=== PATIENT | female | born 1995 | race Caucasian/White ===

== ENCOUNTER 2016-08-10 17:10 | Outpatient (CLI) | payer OTHER ==
[2016-08-10 18:16] VITALS: BP 127/90
== END 2016-08-10 18:34 | disposition home or self-care (01) ==
LOC: TRG 17:10
PROVIDERS: ATTEND Obstetrics & Gynecology
DX: Z34.90 Encounter for supervision of normal pregnancy, unspecified, unspecified trimester (principal); Z3A.00 Weeks of gestation of pregnancy not specified
CPT/HCPCS: 59025

== ENCOUNTER 2016-08-19 15:37 | Outpatient (CLI) | payer OTHER ==
[2016-08-19 16:25] VITALS: BP 132/82
== END 2016-08-19 16:56 | disposition home or self-care (01) ==
LOC: TRG 15:37
PROVIDERS: ATTEND Obstetrics & Gynecology
DX: Z34.90 Encounter for supervision of normal pregnancy, unspecified, unspecified trimester (principal); Z3A.00 Weeks of gestation of pregnancy not specified
CPT/HCPCS: 59025

== ENCOUNTER 2016-08-27 09:06 | Inpatient (IN) | payer OTHER ==
--- NOTE | 2016-08-27 02:37 | History and Physical Report ---
History of Present Illness Date of examination: 08/27/16 Chief complaint: breech presentation History of present illness: Pt is a 21 year old female primigravida 09/03/16 at 39w0d who presents for scheduled section secondary to malpresentation. She denies vaginal bleeding or leakage of fluid and reports good movement. She has had care at [facility] since 14 wks that has been uncomplicated. She is GBS negative. Past History Past Medical History: no pertinent history Past Surgical History: no surgical history Family/Genetic History: none Social history: no significant social history - Obstetrical History Expected Date of Delivery: 09/03/16 Actual Gestation: 39 Week(s) 0 Day(s) : 1 Medications and Allergies Allergies Allergy/AdvReac Type Severity Reaction Status Date / Time No Known Allergies Allergy Unverified 08/10/16 17:10 Review of Systems All systems: negative - Physical Exam Breasts: Positive: deferred Cardiovascular: Regular rate Lungs: Positive: Clear to auscultation Abdomen: Positive: soft (gravid ) Uterus: Positive: enlarged (gravid ) Extremities: Positive: normal - Obstetrical FHR: auscultation normal Uterine Contraction Monitor Mode: External Uterine Contraction Pattern: Absent Uterine Tone Measurement Phase: Resting Results All other labs normal. Assessment and Plan A: IUP at 39w0d Malpresentation P: Confirm breech presentation. Proceed with primary section and other indicated procedures.
--- NOTE | 2016-08-27 11:38 | Ultrasound Report ---
OB LIMITED INDICATION: Presentation. COMPARISON: None similar at this institution. TECHNIQUE: Transabdominal grayscale ultrasound with Doppler interrogation. Gestation: Lindsay Position: Breech Heart Rate: 137 BPM
[2016-08-27] MEDS ORDERED: LACTATED RINGERS 2,000 ML ONE (11:44)
[2016-08-27] MEDS ORDERED: PITOCin/NS 20 UNIT/1000ML DRIP 20 UNIT/1,000 ML BAG IV NR (12:00)
[2016-08-27] MEDS ORDERED: ANCEF/STERILE WATER 2 GM/20 ML 2 GM/20 ML SYRINGE IV NR (12:00)
[2016-08-27] MEDS ORDERED: PEPCID IV NR (12:00)
[2016-08-27] MEDS ORDERED: REGLAN IV NR (12:00)
[2016-08-27] MEDS ORDERED: LACTATED RINGERS 1,000 ML IV NR (12:00)
[2016-08-27] MEDS ORDERED: BICITRA PO NR (12:00)
[2016-08-27 12:26] LABS: Basophils % (Auto) 0.7 % (0.0-1.8); Eosinophils % (Auto) 0.2 % (0.0-4.3); Hematocrit 37.4 % (30.3-42.9); Hemoglobin 12.4 gm/dl (10.1-14.3); Mean Corpuscular HGB Conc 33 % (30-34); Mean Corpuscular Hemoglobin 26 pg (28-32); Mean Corpuscular Volume 79 fl (79-97); Red Blood Count 4.72 M/mm3 (3.65-5.03); Red Cell Distribution Width 16.8 % (13.2-15.2); White Blood Count 10.4 K/mm3 (4.5-11.0)
--- NOTE | 2016-08-27 12:32 | Anesthesia Consultation ---
Anesthesia Consult and Med Hx Date of service: 08/27/16 - Airway Anesthetic Teeth Evaluation: Good ROM Head & Neck: Adequate Mental/Hyoid Distance: Adequate Mallampati Class: Class II Intubation Access Assessment: Probably Good - Pre-Operative Health Status ASA Pre-Surgery Classification: ASA2 Proposed Anesthetic Plan: Epidural, Spinal - Pulmonary Hx Asthma: No - Cardiovascular System Hx Hypertension: No - Central Nervous System Hx Seizures: No Hx Psychiatric Problems: No - Endocrine Hx Renal Disease: No Hx Hypothyroidism: No Hx Hyperthyroidism: No - Hematic Hx Anemia: No Hx Sickle Cell Disease: No - Other Systems Hx Alcohol Use: No Hx Obesity: Yes (BMI 40.9) - Additional Comments Anesthesia Medical History Comments: breech presentation
--- NOTE | 2016-08-27 12:32 | Anesthesia Day of Surgery ---
Anesthesia Day of Surgery - Day of Surgery Patient Examined: Yes Patient H&P Reviewed: Yes Patient is NPO: Yes
[2016-08-27] MEDS ORDERED: SODIUM CHLORIDE FLUSH SYRINGE 10 ML IV PRN (13:00)
[2016-08-27] MEDS ORDERED: fentaNYL-BUPIV 2 MCG/ML-0.125% 200 MCG/100 ML BAG EPIDURAL SCH (13:00)
[2016-08-27] MEDS ORDERED: ZOFRAN IV PRN ×2 (13:00→17:21)
[2016-08-27 13:04] LABS: Platelet Count 200 K/mm3 (140-440)
[2016-08-27] MEDS ORDERED: MORPHINE ONE (13:14)
[2016-08-27] MEDS ORDERED: WATER FOR IRRIG STERILE IR ONE (13:20)
[2016-08-27] MEDS ORDERED: NACL 0.9% IR ONE (13:20)
[2016-08-27] MEDS ORDERED: ANCEF/STERILE WATER 2 GM/20 ML IV ONE (13:25)
[2016-08-27] MEDS ORDERED: NACL 0.9% 1000 ML 1,000 ML ONE (13:27)
[2016-08-27] MEDS ORDERED: NARCAN 0.4 MG/1 ML IV PRN ×2 (13:30→17:21)
[2016-08-27] MEDS ORDERED: ZOFRAN ONE (14:07)
--- NOTE | 2016-08-27 15:01 | Procedure Note ---
OB Delivery Note - Delivery Date of Delivery: 08/27/16 Surgeon: LIT CHAVES Estimated blood loss: other (800 mL) - Section Preop diagnosis: breech, other (spontaneous rupture of membranes) Postop diagnosis: same section procedure: section, primary low transverse Disposition: PACU Complications: none Narrative: Please see operative note. - Infant A at 1 minute: 9 at 5 minutes: 9 Infant Gender: Female (3158g (6lb 15 oz))
--- NOTE | 2016-08-27 15:08 | Operative Report ---
Operative Report Operative Report: Date of procedure: 08/27/2016 Preoperative diagnosis: #1 Intrauterine at 39 weeks 0 days #2 Malpresentation #3 Spontaneous rupture of membranes #4 Obesity Postoperative diagnosis: Same Procedure: Primary low transverse section Surgeon: Callie Baptiste M.D. Anesthesia: Spinal Findings: 1) Viable female , Apgars 9 and 9, weight 3158 g, (6 lb 15 oz) in irene breech presentation 2) Normal-appearing uterus ovaries and tubes Estimated blood loss: 800 mL IV fluids: 1500 mL Urine output: 300 mL, clear at the end of the procedure Drains: Benavides to gravity Specimens: None. Complications: None. Counts correct 3 Disposition: Stable to PACU Indication for procedure: The patient is a 21-year-old female primigravida at 39 weeks 0 days who presents for scheduled section secondary to breech presentation. While on the operative table the patient experienced spontaneous rupture of membranes. The decision was made to proceed with primary section. Operation in detail: After the risks, benefits, alternatives and complications were explained to the patient she gave informed consent for the procedure. She was subsequently taken to the operating room where spinal anesthesia was noted to be adequate. She was subsequently placed in the dorsal supine position with leftward tilt and prepped and draped in a normal sterile fashion. heart tones were noted to be in the 140 s prior to incision. A timeout was performed. A Pfannenstiel skin incision was made with the knife and carried down to the layer of the fascia with the Bovie. The fascia was incised in the midline and the fascial incision was extended bilaterally with the Bovie. Attention was then turned to the superior aspect of the incision which was grasped with two Kochers, tented up, and dissected off the rectus muscles. Attention was then turned to the inferior aspect of the incision which was grasped with two Kochers , tented up and dissected off the rectus muscles. The rectus muscles were then in the midline. The peritoneum was then entered bluntly. The peritoneal incision was extended with good visualization of the bladder. The peritoneal incision was then stretched. An Stanton self-retaining retractor was placed for visualization. The bladder blade was placed. The vesicouterine peritoneum was grasped with smooth pickups and incised with Metzenbaum scissors. Metzenbaum scissors were used to extend the incision bilaterally. The bladder flap was then created digitally and the bladder blade was replaced. A transverse incision was made in the lower uterine segment with a knife and extended bilaterally with the bandage scissors. The buttocks was delivered without difficulty and covered with a blue towel. Subsequently the legs and arms were reduced medially and the head was delivered without difficulty. was bulb suctioned at delivery. The cord was clamped and cut and the was handed to NICU staff in attendance. The placenta was then delivered manually. The uterus was then cleared of all clots and debris. The hysterotomy was then reapproximated with 0 Vicryl in a running locked fashion. A second layer of the same suture was used in imbricating fashion. The hysterotomy was inspected and hemostasis was noted. The Stanton self-retaining retractor was removed. The gutters were irrigated and cleared of all clots and debris. The hysterotomy was again inspected and noted to be hemostatic. Surgicel was placed over the hysterotomy. The peritoneum was reapproximated with 2-0 Vicryl in running fashion. The rectus muscles were then reapproximated with 2-0 Vicryl in an interrupted fashion. The fascia was reapproximated with 0 Vicryl in a running fashion. The subcutaneous tissue was reapproximated with 3-0 Vicryl in a running fashion. The skin was reapproximated with 4-0 Vicryl in a subcuticular fashion. The incision was then covered with steri strips and a pressure dressing. The procedure was then ended. The patient tolerated the procedure well and was taken to the PACU in stable condition. All instrument, lap, and needle counts were correct 3.
--- NOTE | 2016-08-27 16:06 | Post Anesthesia Evaluation ---
- Post Anesthesia Evaluation Patient Participated: Yes Airway Patent: Yes Stable Respiratory Function: Yes Temp > 96.8F: Yes Pain Manageable: Yes Adequeate Hydration: Yes Anesthesia Complications: No Block Receding Appropriately: Yes
[2016-08-27] MEDS ORDERED: PERCOCET 5/325 PO PRN (17:21)
[2016-08-27] MEDS ORDERED: LANSINOH TP PRN (17:21)
[2016-08-27] MEDS ORDERED: PITOCin/NS 20 UNIT/1000ML DRIP 20 UNITS/1,000 ML BAG IV SCH (17:21)
[2016-08-27] MEDS ORDERED: MORPHINE IV PRN ×2 (17:21)
[2016-08-27] MEDS ORDERED: TORADOL IV PRN (17:21)
[2016-08-27] MEDS ORDERED: TUCKS PAD TP PRN (17:21)
[2016-08-27] MEDS ORDERED: SODIUM CHLORIDE FLUSH SYRINGE 10 ML IV NR (17:21)
[2016-08-27] MEDS ORDERED: MILK OF MAGNESIA PO PRN (17:21)
[2016-08-27] MEDS: D5LR 1,000 ML IV SCH (17:54)
[2016-08-27] MEDS: ANCEF/NS 1 GM/50 ML 1 GM/50 ML BAG IV SCH (21:23)
[2016-08-27] MEDS: FEOSOL PO SCH (22:11)
[2016-08-28] MEDS: D5LR 1,000 ML IV SCH (00:47)
[2016-08-28] MEDS: ANCEF/NS 1 GM/50 ML 1 GM/50 ML BAG IV SCH (04:31)
[2016-08-28 06:12] LABS: Hematocrit 27.7 % (30.3-42.9); Hemoglobin 9.2 gm/dl (10.1-14.3)
--- NOTE | 2016-08-28 08:35 | Progress Note ---
Assessment and Plan A; POD#1 s/p primary section secondary to breech presentation P: Routine postoperative care. Hold diet if nausea and vomiting continues.. Subjective - Subjective Date of service: 08/28/16 Principal diagnosis: s/p primary for breech Interval history: + Nausea overnight. Tolerating water right now without nausea. Patient reports: appetite normal, voiding normally, pain well controlled, ambulating normally, nauseated (initally ), no flatus, no bowel movement Marcellus: doing well Objective - Vital Signs Latest vital signs: Vital Signs Temp Pulse Pulse Resp BP BP Pulse Ox 08/28/16 06:30 98.4 F 108 H 20 128/73 08/28/16 01:32 98.2 F 106 H 20 118/76 08/27/16 20:55 98 F 100 H 20 133/80 08/27/16 16:05 97.8 F 100 H 20 113/87 100 08/27/16 15:50 95 H 14 128/80 100 08/27/16 15:35 98 H 18 121/81 100 08/27/16 15:20 90 28 H 119/73 08/27/16 15:15 92 H 14 119/76 100 08/27/16 15:10 97.5 F L 94 H 15 121/76 100 08/27/16 15:07 97.5 F L 96 H 15 119/68 100 08/27/16 13:03 103 H 100 08/27/16 12:58 104 H 98 08/27/16 12:57 101 H 154/96 08/27/16 12:55 98.6 F 108 H 20 154/96 100 Intake and Output 08/27/16 08/28/16 08/28/16 22:59 06:59 14:59 Intake Total 975 1355 Output Total 900 1000 Balance 75 355 Intake: IV 875 875 ANCEF/NS 1 GM/50 ML 1 gm 50 In 50 ml @ 0 mls/hr IV Q8H CASSIUS Rx#:[id number] D5lr 1,000 ml @ 125 mls/ 50 825 hr IV DIRECT CASSIUS Rx#: [id number] PITOCin/NS 20 UNIT/1000ML 125 DRIP 20 units In 1,000 ml @ 250 mls/hr IV TITR CASSIUS Rx#:[id number] Intake, Free Water 100 480 Output: Urine 900 1000 Indwelling Catheter 400 1000 Other: Total, Output Amount 400 1000 # Voids Void 1 - Exam Breasts: Present: deferred Cardiovascular: Present: Regular rate Lungs: Present: Clear to auscultation Abdomen: Present: soft (obese ) Uterus: Present: fundal height at umbilicus Extremities: Present: edema (+1 ) Incision: Present: dressed - Labs Labs: Abnormal lab results 08/27/16 08/28/16 Range/Units 12:00 06:01 Hgb 9.2 L D (10.1-14.3) gm/dl Hct 27.7 L D (30.3-42.9) % MCH 26 L (28-32) pg RDW 16.8 H (13.2-15.2) %
[2016-08-28] MEDS: FEOSOL PO SCH (12:45)
[2016-08-28] MEDS: MOTRIN PO PRN ×2 (12:45→23:47)
[2016-08-28] MEDS: PRENATAL VITAMIN PO SCH (12:45)
[2016-08-28] MEDS ORDERED: BOOSTRIX IM ONE (15:11)
[2016-08-28] MEDS ORDERED: M-M-R II VACCINE SUB-Q ONE (15:11)
--- NOTE | 2016-08-29 11:19 | Progress Note ---
Assessment and Plan pod 2 s/p primary c/s. doing well. Subjective - Subjective Date of service: 08/29/16 Principal diagnosis: s/p primary for breech Interval history: pod 2 s/p primary c/s Patient reports: appetite normal, voiding normally, pain well controlled : doing well Objective - Vital Signs Latest vital signs: Vital Signs Temp Pulse Resp BP 08/29/16 00:50 98.2 F 100 H 22 120/90 08/28/16 16:50 98.1 F 108 H 20 115/62 08/28/16 13:24 98.2 F 100 H 20 117/68 Intake and Output 08/28/16 08/29/16 08/29/16 22:59 06:59 14:59 Intake Total 360 Balance 360 Intake: Oral 360 Other: Total, Intake Amount 360 # Voids Void 1 - Exam Breasts: Present: deferred Cardiovascular: Present: Regular rate, Normal S1, Normal S2 Lungs: Present: Clear to auscultation Abdomen: Present: normal appearance, soft Vulva: both: normal Uterus: Present: normal, firm Extremities: Present: normal Deep Tendon Reflex Grade: Normal +2 Incision: Present: normal, dry, intact
[2016-08-29] MEDS: FEOSOL PO SCH ×2 (13:34→19:18)
[2016-08-29] MEDS: PRENATAL VITAMIN PO SCH (13:35)
[2016-08-29] MEDS: MOTRIN PO PRN (13:36)
--- NOTE | 2016-08-29 13:40 | Discharge Summary ---
Providers - Providers Date of Admission: 08/27/16 09:06 Date of discharge: 08/30/16 Attending physician: LIT CHAVES 08/27/16 17:21 Consult to [facility] [CONS] Routine Reason For Exam: Primary care physician: LIT CHAVES Hospitalization Reason for admission: active labor Delivery: Procedure: section, primary low transverse Procedure details: s/p primary c/s doing well. Episiotomy: none Incision: normal, intact Other procedures: none complications: none Discharge diagnosis: IUP at term delivered [place] baby: female Hospital course: patient doing well. will d/c home tomorrow am Condition at discharge: Good Disposition: DISCHARGED TO HOME OR SELFCARE - Discharge Diagnoses (1) S/P primary low transverse Status: Acute (2) Anemia Status: Acute Qualifiers: Anemia type: A Iron deficiency anemia type: I Vitamin B12 deficiency anemia type: V Folate deficiency anemia type: F Bone marrow failure anemia type: B Hemolytic anemia type: H Other causes of anemia: O Comment: secondary to blood loss at delivery Plan - Discharge Medications Prescriptions: Ferrous Sulfate [Feosol 325 MG tab] 325 mg PO BID #60 tablet Ibuprofen [Motrin 800 MG tab] 800 mg PO Q8HR PRN #30 tablet PRN Reason: Pain, Moderate (4-6) oxyCODONE /ACETAMINOPHEN [Percocet 5/325] 1 tab PO Q6HR PRN #30 tablet PRN Reason: Pain - Provider Discharge Summary Activity: routine, no sex for 6 weeks, no heavy lifting 4 weeks, no strenuous exercise Diet: routine Instructions: routine Additional instructions: [] Smoking cessation referral if applicable(refer to patient education folder for contact #) [] Refer to [facility] Booklet Call your doctor immediately for: * Fever > 100.5 * Heavy vaginal bleeding ( >1 pad per hour) * Severe persistent headache * Shortness of breath * Reddened, hot, painful area to leg or breast * Drainage or odor from incision. * Keep incision clean and dry at all times and follow doctor's instructions regarding bathing/showering - Follow up plan Follow up: LIT CHAVES MD [Primary Care Provider] - 14 Days
[2016-08-30] MEDS: MOTRIN PO PRN (09:49)
[2016-08-30 10:44] VITALS: BP 133/88
== END 2016-08-30 10:35 | disposition home or self-care (01) | DRG 765 ==
LOC: APU 09:06 → OB 17:01
PROVIDERS: ADMIT Obstetrics & Gynecology; ATTEND Obstetrics & Gynecology
PROC: 10D00Z1 Extraction of Products of Conception, Low, Open Approach (ICD-10-PCS; principal; 2016-08-27)
DX: O32.1XX0 Maternal care for breech presentation, not applicable or unspecified (principal); Z68.41 Body mass index [BMI] 40.0-44.9, adult; D62 Acute posthemorrhagic anemia; O99.214 Obesity complicating childbirth; E66.9 Obesity, unspecified; O99.02 Anemia complicating childbirth; Z3A.39 39 weeks gestation of pregnancy; O42.92 Full-term premature rupture of membranes, unspecified as to length of time between rupture and onset of labor
CPT/HCPCS: 36415; 76815; 85014; 85018; 85025; 86850; 86900; 86901; 99211; G0463; J0690; J2270; J2405; J2590; J2765; J7030; J7120; J7121